=== PATIENT | female | born 1965 | race African-American/Black ===

== ENCOUNTER → 2016-08-30 | Outpatient (CLI) | payer OTHER ==
[~2016-08-30] MED LIST: ASPIR 8181 MG PO; ATORVASTATIN CA40 MG PO; IMDUR 30 MG TAB30 M1 PO; METOPROLOL TART25 MG PO; OMEPRAZOLE40 MG PO; PLAVIX 75 MG TA75 M1 PO; PROAIR HFA8.5 GM; TOPAMAX50 MG PO; ZOLPIDEM TARTRA10 MG PO
== END ==
LOC: RAD 10:13
DX: M51.36 Other intervertebral disc degeneration, lumbar region (principal); R10.2 Pelvic and perineal pain

== ENCOUNTER → 2021-05-12 | Outpatient (CLI) | payer OTHER | LOC: RAD 09:33 | PROVIDERS: ATTEND Nurse Practitioner | DX: M54.50 Low back pain, unspecified (principal) ==

== ENCOUNTER → 2021-05-21 | Outpatient (CLI) | payer OTHER | LOC: BC 08:57 | PROVIDERS: ATTEND Nurse Practitioner | DX: Z12.31 Encounter for screening mammogram for malignant neoplasm of breast (principal); N64.89 Other specified disorders of breast ==